=== PATIENT | female | born 1970 | race Caucasian/White ===

== ENCOUNTER 2017-10-17 00:17 | Emergency (ER) | payer MEDICARE, OTHER ==
[~2017-10-17] VITALS: Ht 170.2 cm; Wt 65.3 kg
[~2017-10-17 00:17] MED LIST: AMIT100 PO; BUSP10 PO; CYCL-36 PO; DIAZ5 PO; ERYT250C12 PO; FERR324T4 PO; LORA2TAB PO; METO10TA PO; OMEP20TA PO; ORPH100T PO; OXYC5 PO; TUSSSUS PO; WAL-10TA2 PO
[2017-10-17 00:21] VITALS: BP 218/103; PULSE 92; RESP 20; TEMP 98.1; O2SAT 100
[2017-10-17] MEDS ORDERED: LORA2TAB7 PO (00:34)
[2017-10-17] MEDS ORDERED: BACL10TA PO (00:34)
[2017-10-17] MEDS ORDERED: OXYC1CAP PO (00:34)
[2017-10-17] MEDS ORDERED: REGL10TA5 PO (00:34)
[2017-10-17] MEDS ORDERED: AMIT50TA3 PO (00:34)
[2017-10-17] MEDS ORDERED: FENT100T TOPICAL (00:34)
[2017-10-17] MEDS ORDERED: LISI20TA PO ×2 (09:51→09:57)
[2017-10-17] MEDS ORDERED: CEPH-460 PO (09:57)
== END 2017-10-17 02:17 | disposition left against medical advice (07) ==
LOC: PHED 00:17
DX: R22.0 Localized swelling, mass and lump, head (principal)
CPT/HCPCS: 99281

== ENCOUNTER 2017-10-17 09:27 | Emergency (ER) | payer MEDICARE, OTHER ==
[~2017-10-17] VITALS: Ht 170.2 cm; Wt 65.0 kg
[~2017-10-17 09:27] MED LIST changes: +AMIT50TA3 PO; +BACL10TA PO; +FENT100T TOPICAL; +LORA2TAB7 PO; +OXYC1CAP PO; +REGL10TA5 PO
[2017-10-17 09:29] VITALS: BP 172/94; PULSE 89; RESP 14; TEMP 98.4; O2SAT 97
--- NOTE | 2017-10-17 09:49 | PD ---
HPI Chief Complaint: Headache Time Seen by Provider: 09:36 Travel History International Travel<30 days: No Contact w/Intl Traveler<30days: No Traveled to known affect area: No History of Present Illness HPI This is a 47-year-old female who presents for evaluation of scalp pain. Symptoms started 3 days ago. She reports that it feels like there is a lump on her right occipital scalp which is painful, throbbing, causing her to have a headache. She denies any trauma to her head. She is never had this problem before. Denies any fevers or chills. Denies any blurred vision, neck pain. Her blood pressure is noted to be elevated today. She reports that she ran out of her blood pressure medication and she cannot get it refilled until she sees her primary care physician next week. She has no other complaints. PFSH Past Medical History Autoimmune Disease: Yes (Lupus) Diminished Hearing: No Fibromyalgia: Yes Gastrointestinal Disorders: Yes (gastroparesis) Immunizations Current: No Past Surgical History Neurologic Surgery: Yes Social History Alcohol Use: Yes (RARELY) Tobacco Use: Yes (1 PPD) Substance Use: No Allergies-Medications (Allergen,Severity, Reaction): Coded Allergies: acetaminophen (Unverified Allergy, Severe, FATTY LIVER, 10/17/17) Reported Meds & Prescriptions Reported Meds & Active Scripts Active Keflex (Cephalexin) 500 Mg Capsule 500 Mg PO Q8H 7 Days Lisinopril-Hctz 20-12.5 Mg Tab 1 Tab PO DAILY 14 Days Reported Lisinopril-Hctz 20-12.5 Mg Tab 1 Tab PO DAILY Amitriptyline (Amitriptyline HCl) 50 Mg Tab 50 Mg PO HS Reglan (Metoclopramide HCl) 10 Mg Tab 10 Mg PO TIDAC Baclofen 10 Mg Tab 10 Mg PO BID Lorazepam 2 Mg Tab 2 Mg PO DAILY PRN Oxycodone (Oxycodone HCl) 5 Mg Cap 5 Mg PO BID PRN Duragesic (Fentanyl) 100 Mcg/Hour Patch.td72 100 Mcg TOPICAL EVERY OTHER DAY Review of Systems Except as stated in HPI: all other systems reviewed are Neg Physical Exam Narrative GENERAL: Well-developed well-nourished female in no acute distress SKIN: Warm and dry. HEAD: Atraumatic. Normocephalic. The patient does have isolated scalp tenderness on the right occipital side approximately 3 cm across. The skin does feel slightly indurated. There are no obvious visible cutaneous changes. No vesicles, no alopecia, no fluctuance or drainage. EYES: Pupils equal and round. No scleral icterus. No injection or drainage. ENT: No nasal bleeding or discharge. Mucous membranes pink and moist. NECK: Trachea midline. No JVD. CARDIOVASCULAR: Regular rate and rhythm. No murmur appreciated. RESPIRATORY: No accessory muscle use. Clear to auscultation. Breath sounds equal bilaterally. NEUROLOGICAL: Awake and alert. No obvious cranial nerve deficits. Motor grossly within normal limits. Normal speech. Data Data Last Documented VS Vital Signs Date Time Temp Pulse Resp B/P (MAP) Pulse Ox O2 Delivery O2 Flow Rate FiO2 10/17/17 09:29 98.4 89 14 172/94 (120) 97 Orders Orders Ed Discharge Order (10/17/17 09:58) [facility] Medical Decision Making Medical Screen Exam Complete: Yes Emergency Medical Condition: Yes Medical Record Reviewed: Yes Differential Diagnosis Cellulitis, shingles, kerion, abscess, lymphadenitis Narrative Course Physical examination is reassuring. There is a small focal slight induration on the right occipital scalp with no obvious cutaneous changes. The plan would be to start the patient on Keflex and, when follow-up with her primary care physician next week, this will be reassessed. The patient was given a short refill of her antihypertensives. She is stable for discharge. Diagnosis Primary Impression: Scalp tenderness Additional Impression: Medication refill Additional Instructions: Medication as prescribed. Warm compresses to the affected area several times a day 15 minutes at a time. Monitor blood pressure regular basis. Follow-up With primary care physician as scheduled and return for any acutely new or worsening symptoms. Med/Other Pt SpecificInfo: Prescription(s) given Scripts Cephalexin (Keflex) 500 Mg Capsule 500 MG PO Q8H for Infection for 7 Days, #21 CAP 0 Refills Prov: Fabiola Cruz MD 10/17/17 Lisinopril-Hctz (Lisinopril-Hctz) 20-12.5 Mg Tab 1 TAB PO DAILY for Blood Pressure Management for 14 Days, #14 TAB 0 Refills Prov: Fabiola Cruz MD 10/17/17 Disposition: 01 DISCHARGE HOME Condition: Stable Phi Becker Oct 17, 2017 09:49
[2017-10-17] MEDS ORDERED: LISI20TA PO ×2 (09:51→09:57)
[2017-10-17] MEDS ORDERED: CEPH-460 PO (09:57)
--- NOTE | 2017-10-17 09:59 | PD ---
Data Data Last Documented VS Vital Signs Date Time Temp Pulse Resp B/P (MAP) Pulse Ox O2 Delivery O2 Flow Rate FiO2 10/17/17 09:29 98.4 89 14 172/94 (120) 97 MDM Supervised Visit with ARUN: Yes Narrative Course The history, exam, and medical decision-making in the associated midlevel provider note were completed with my assistance. I reviewed and agree with the findings presented. I attest that I had a [id number] encounter with the patient on the same day, and personally performed and documented my assessment and findings in the medical record. *My assessment and Findings: This is a patient who presents to the emergency department with some swelling along the posterior right scalp which is tender. She has a benign exam with a small area of raised thickened skin which is focally tender. I suspect it is localized cellulitis. Patient is otherwise well-appearing. She will be discharged on antibiotic therapy. She also has chronic hypertension and is out of her blood pressure medication. This was refilled. Patient was discharged home. Scripts Cephalexin (Keflex) 500 Mg Capsule 500 MG PO Q8H for Infection for 7 Days, #21 CAP 0 Refills Prov: Fabiola Cruz MD 10/17/17 Lisinopril-Hctz (Lisinopril-Hctz) 20-12.5 Mg Tab 1 TAB PO DAILY for Blood Pressure Management for 14 Days, #14 TAB 0 Refills Prov: Fabiola Cruz MD 10/17/17 Fabiola Cruz MD Oct 17, 2017 09:59
== END 2017-10-17 10:18 | disposition home or self-care (01) ==
LOC: NEPD 09:27
DX: R22.0 Localized swelling, mass and lump, head (principal); I10 Essential (primary) hypertension; F17.200 Nicotine dependence, unspecified, uncomplicated
CPT/HCPCS: 99283